=== PATIENT | male | born 1965 | race Caucasian/White ===

== ENCOUNTER 2017-10-03 15:03 | Observation (INO) | payer OTHER ==
[2017-10-03] MEDS ORDERED: Aspirin Low Dose CHEW TAB* 81 MG PO ONE (16:10)
--- NOTE | 2017-10-03 16:46 | RAD ---
HISTORY: Chest pain COMPARISONS: August 05, 2011 VIEWS: 1: frontal portable view of the chest at 4:22 PM FINDINGS: LINES AND TUBES: None. CARDIOMEDIASTINAL SILHOUETTE: The cardiomediastinal silhouette is normal for portable technique. PLEURA: The costophrenic angles are sharp. No pleural abnormalities are noted. LUNG PARENCHYMA: The lungs are clear. ABDOMEN: The upper abdomen is clear. There is no subphrenic gas. BONES AND SOFT TISSUES: The patient is status post anterior cervical fusion. Degenerative changes are noted. IMPRESSION: NO ACTIVE CARDIOPULMONARY DISEASE.
--- NOTE | 2017-10-03 17:01 | RAD ---
HISTORY: Thoracic spine pain COMPARISONS: Chest CT dated March 04, 2015 VIEWS: 4, Frontal and lateral views of the thoracic spine. FINDINGS: ALIGNMENT: There is mild choledochojejunal spine VERTEBRAL BODIES: The patient is status post laminectomy and fusion at the cervicothoracic junction. There is multilevel anterolateral marginal osteophyte formation. JOINTS: Unremarkable. INTERVERTEBRAL DISCS: There is diffuse loss of intervertebral disc height. SOFT TISSUE: Unremarkable OTHER: The visualized lungs are clear. IMPRESSION: POST SURGICAL CHANGE. DEGENERATIVE DISC DISEASE.
[2017-10-03 17:20] LABS: Hematocrit 41 % (42-52); Hemoglobin 14.2 g/dl (14.0-18.0); Mean Corpuscular HGB Conc 35 g/dl (31-36); Mean Corpuscular Hemoglobin 29 pg (27-31); Mean Corpuscular Volume 84 fL (80-94); Mean Platelet Volume 7 um3 (7.4-10.4); Red Blood Count 4.89 10^6/ul (4.0-5.4); Red Cell Distribution Width 14 % (10.5-15); White Blood Count 6.5 10^3/ul (3.5-10.8)
[2017-10-03 17:35] LABS: Albumin 4.4 g/dL (3.2-5.2); Calcium 9.3 mg/dL (8.6-10.3); EGFR African American 124.2 (>60); EGFR Non-African American 96.5 (>60); Total Bilirubin 0.8 mg/dL (0.2-1.0); Total Protein 7.4 g/dL (6.4-8.9)
[2017-10-03 17:36] LABS: Troponin I 0.01 ng/mL (<0.04)
[2017-10-03] MEDS ORDERED: Nicotine Inhaler* 10 MG AMP INH ONE (19:35)
[2017-10-03] MEDS ORDERED: Mouth Piece, Nicotine* 1 EACH CARTRIDGE ONE ×2 (19:48→22:52)
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
[2017-10-03] MEDS ORDERED: hydrOXYzine HCL TAB* 50 MG PO PRN (22:25)
[2017-10-03] MEDS ORDERED: Albuterol HFA INHALER* 8 gm MDI INH PRN (22:25)
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
[2017-10-03] MEDS ORDERED: Zolpidem TAB* 10 MG PO PRN (22:40)
[2017-10-03] MEDS: Nicotine Inhaler* 10 MG AMP INH PRN (23:03)
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
[2017-10-04] MEDS: Heparin VIAL(*) 5000 UNITS/ML VIAL (FIVE THOUSAND) SUBCUT SCH ×2 (06:05→14:10)
[2017-10-04] MEDS: Nicotine Inhaler* 10 MG AMP INH PRN ×3 (06:13→13:44)
[2017-10-04 06:36] LABS: Albumin 4.1 g/dL (3.2-5.2); BUN/Creatinine Ratio 13.6 (8-20); EGFR African American 116.1 (>60); EGFR Non-African American 90.2 (>60); Globulin 2.8 g/dL (2-4); HDL Cholesterol 21.1 mg/dL; Potassium 4.1 mmol/L (3.5-5.0); Total Bilirubin 0.7 mg/dL (0.2-1.0); Total Protein 6.9 g/dL (6.4-8.9)
[2017-10-04] MEDS ORDERED: Atorvastatin* 10 MG TAB PO SCH (09:00)
[2017-10-04] MEDS ORDERED: Umeclidin/Vilant 62.5 MDI 62.5/25 mcg 14 INH ELLIPTA DEVICE INH SCH (09:00)
[2017-10-04] MEDS ORDERED: amLODIPine TAB* 5 MG PO SCH (09:00)
[2017-10-04] MEDS ORDERED: Nicotine PATCH 21 MG/24 HR* PATCH TRANSDERM SCH (09:00)
[2017-10-04] MEDS ORDERED: Acetaminophen TAB* 325 MG PO PRN (10:54)
--- NOTE | 2017-10-04 11:07 | RAD ---
Edited for charges. Indication: Chest pain. Myocardial perfusion scan was performed utilizing 1 day protocol. 10.7 mCi of technetium 99m tetrofosmin was injected for the rest portion of study. Treadmill stress study was performed and 25.43 mCi of technetium 99m tetrofosmin was injected for the stress portion of the body. The maximum heart rate achieved was 90% of the maximum predicted value. There is homogeneous distribution of the radiotracer throughout the left ventricle. There is a moderate size defect involving the anterior wall extending into the septum and apex. This appears to mostly reverse on the rest images and this is consistent with a moderate area of reversible change. No ventriculomegaly is noted. Ejection fraction at stress is 55%. Evaluation of wall motion demonstrates no focal wall motion abnormality. IMPRESSION: Moderate-sized area of reversible change involving the anterior wall extending into the septum. Ejection fraction of 55%. ASSESSMENT: Intermediate risk Based on imaging criteria from ACC/AHA 2002 Guideline Update for the Management of Patients With Chronic Stable Angina Table 23. Noninvasive Risk Stratification. Reference. MTDD
[2017-10-04] MEDS ORDERED: Aspirin EC Low Dose* 81 MG TAB.EC PO SCH (14:00)
[2017-10-04] MEDS ORDERED: Metoprolol Succinate XL TAB* 25 MG PO SCH (14:00)
[2017-10-04] MEDS ORDERED: Atorvastatin* 40 MG TAB PO SCH (17:00)
[2017-10-04 17:15] VITALS: BP 123/66
[2017-10-04] MEDS ORDERED: Nicotine Patch Removal NOTE PATCH OFF SCH (21:00)
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
== END 2017-10-04 16:35 | disposition home or self-care (01) ==
LOC: ED 15:03 → MEDTELE 20:38
PROVIDERS: ADMIT Internal Medicine; ATTEND Internal Medicine
DX: R07.89 Other chest pain (principal); I25.119 Atherosclerotic heart disease of native coronary artery with unspecified angina pectoris; Z72.0 Tobacco use; I10 Essential (primary) hypertension; K21.9 Gastro-esophageal reflux disease without esophagitis; E78.5 Hyperlipidemia, unspecified; F41.9 Anxiety disorder, unspecified; J44.9 Chronic obstructive pulmonary disease, unspecified; Z79.899 Other long term (current) drug therapy; E78.1 Pure hyperglyceridemia; R79.89 Other specified abnormal findings of blood chemistry; M54.6 Pain in thoracic spine
CPT/HCPCS: 36415; 71010; 72070; 78452; 80053; 80061; 82550; 83605; 83735; 83880; 84484; 85025; 85379; 85610; 87641; 93005; 93017; 96375; A9270-GY; A9502; G0378; J1644

== ENCOUNTER → 2017-12-06 08:23 | Day surgery (SDC) | payer OTHER ==
[~2017-12-06 08:23] MED LIST: Acetaminophen TAB* 325 MG ONE; Acetaminophen TAB* 325 MG PO ONE; Aspirin Low Dose CHEW TAB* 81 MG ONE; Diazepam TAB(*) 5 MG ONE; Heparin 2 UNITS/ML IVPREMIX* 2,000 ML IV ONE; Heparin(*) 1000 UNIT/ML 10 ML VIAL CATH LAB IV ONE; Iohexol 350 (CONTRAST) 200 ML MDV IV ONE; Lidocaine 1% INJ* 10 MG/ML 30 ML SDV ONE; Midazolam* 1 MG/ML 10 ML VIAL (10 MG) ONE; VERAPAMIL 2.5 MG/ML 2 ML VIAL ** 5 mg/2 ml ONE; diPHENhydraMINE PO* 25 MG ONE; fentaNYL* 50 MCG/ML 2 ML VIAL (100 MCG VIAL) IV ONE; fentaNYL* 50 MCG/ML 2 ML VIAL (100 MCG VIAL) ONE; nitroGLYCERIN DRIP* 25,000 MCG/250 ML BTL ONE
[2017-12-06] MEDS: NS 0.9% 1000 ML* 1,000 ML IV SCH ×2 (11:15→15:15)
[2017-12-06 15:06] VITALS: BP 121/88
--- NOTE | 2017-12-08 04:21 | CATH ---
CC: Dr. Shayna Blood; Dr. Valentín Buckner, [facility]; Dr. Rob Dykes, Department of Cardiovascular Surgery, [facility] * CARDIAC CATHETERIZATION REPORT: DATE OF PROCEDURE: 12/06/17 - [facility] CATH INDICATION FOR PROCEDURE: The patient with markedly abnormal exercise nuclear stress test on 2-drug therapy for angina pectoris, assess coronary anatomy. PROCEDURE: Left heart catheterization, left ventriculography, coronary arteriography. DESCRIPTION OF PROCEDURE: The patient was interviewed and examined in the holding area of the lab tech where the risks and benefits were explained. The right radial artery was assessed for size and found to be acceptable for an approach. The patient was brought into the cardiovascular laboratory where a formal time-out was performed. He was prepped and draped in a sterile fashion. The right radial artery area was anesthetized with 1% lidocaine. Under ultrasound guidance, an attempt was made to cannulate the right radial artery. Of note, in analyzing right radial artery a short distance up from the initial site, the right radial artery appeared to be very small in caliber and diffusely diseased with plaque formation. After 2 attempts, the decision was made to abort this approach and to proceed to the right femoral artery approach. The patient had already been prepped and draped in a sterile fashion to this area. He was anesthetized with 1% lidocaine and the right femoral artery was entered with an anterior wall stick only. A 5-Yi Glidesheath was placed. Coronary arteriography was then performed using a 5-Yi 4 Ananda left coronary catheter and 5-Yi 4 Ananda right coronary catheter. Following this, central aortic pressure was recorded using an angled pigtail catheter advanced into the ascending aorta. Once recorded, the catheter was passed across the aortic valve into the left ventricle, where left ventricular pressure was recorded. Left ventriculography was performed utilizing a total of 24 cc of Omnipaque dye at a rate of 12 cc per second The catheter was then pulled back across the aortic valve to recheck gradient. Following this, an injection was made into the right femoral artery sheath to assess eligibility to utilize closure device. It was found be acceptable for this and as such a 5- Yi Mynx closure device was deployed with good hemostasis. The total contrast used was 74 cc of Omnipaque dye. The radiation exposure included 5.3 minutes of fluoro time. The air kerma radiation was 572 milligray. The DAP radiation was 3313 microgray per sq. m. RESULTS: HEMODYNAMIC DATA: Left heart catheterization - central aortic pressure recorded at 138/76 with a mean of 102. Left ventricular pressure recorded at 139 over left ventricular end diastolic pressure of 14 to 16 mmHg. LEFT VENTRICULOGRAPHY: Performed in the DOUGLAS projection revealed symmetrical contraction of left ventricle with overall ejection fraction 50% to 55%. No significant mitral regurgitation was identified. CORONARY ARTERIOGRAPHY: A. Left coronary artery: 1. Left main - there was tapering of the distal left main because of a heavy calcified plaque, which extended from the distal left main into the LAD system. In its worst view, the distal left main appeared to be 55% to 60%. 2. Left anterior descending artery. Extensive calcified plaque extending into the proximal segment with diffuse disease with an 85% stenosis seen. Of note, the diffuse nature of the vessel extended back to the ostium of the LAD and into the distal left main. The mid portion of the LAD had a 35% to 40% narrowing seen. The artery appeared to be more normal caliber in its mid segment to [id number] segment. The diagonal branches appeared to be small in caliber in nature. They clearly appeared to be under 1.7 mm. 3. Circumflex artery - a nondominant vessel supplying a very thin high first high obtuse marginal branch followed by a moderate size large second obtuse marginal branch, which bifurcates in its apical region. The continuation of circumflex supplied several low small caliber posterior left ventricular branches. There was mild haze seen in the proximal portion of the circumflex artery, but no significant stenosis was seen. B. Right coronary artery: A dominant vessel supplying multiple acute marginal branches followed by a posterior descending artery, too thin, followed by a moderate size posterior left ventricular branch. There was some mild luminal irregularity seen throughout the vessel. The degree of narrowing noted to be 25% to 30% at its most, but no significant stenosis was seen. OVERALL ASSESSMENT: Significant coronary artery disease involving distal left main and proximal left anterior descending artery as described above with mild-to- moderate disease in the mid portion of the left anterior descending artery. No significant disease seen throughout the circumflex system or the right coronary artery. This information was shared with Dr. Valentín Buckner and also with Dr. Rob Dykes at [facility]. The patient will be scheduled for an outpatient visit in less than a week's time with Dr. Rob Dykes followed by anticipated bypass surgery. It should be noted that prior to performing the catheterization, an extensive discussion was made with the patient regarding dual antiplatelet therapy and the ability to take it should any stenting be compensated prior to these results. That discussion was had by Dr. Buckner as well as myself and on both indications, the patient made it clear that he did not feel he could participate in spiritism dual-antiplatelet therapy as he stated in general he was very forgetful taking his medications and often would go days without it. [id number]/[facility] #: [id number] MTDD
== END | disposition home or self-care (01) ==
LOC: CHICATH 08:23
PROVIDERS: ATTEND Internal Medicine Cardiovascular Disease
DX: I25.119 Atherosclerotic heart disease of native coronary artery with unspecified angina pectoris (principal); F17.210 Nicotine dependence, cigarettes, uncomplicated; R42 Dizziness and giddiness; I10 Essential (primary) hypertension; E78.5 Hyperlipidemia, unspecified
CPT/HCPCS: 76937; 93458; 99156; 99157; A9270-GY; C1887; J1644; J2250; J3010

== ENCOUNTER 2017-12-27 16:38 | Inpatient (IN) | payer OTHER ==
--- OUTSIDE RECORDS SUMMARY | 2017-12-27 17:21 | XMS REPORT ---
:1965 External Reference #:[id number] Author Organization [facility] Address [address] [address] Phone [phone] Care Team Providers Name Role Phone Shayna Blood MD Primary Care Physician Unavailable Payers Type Date Identification Numbers Payment Provider Subscriber Commercial Policy Number: [id number] [employer] Gilmar Beard PayID: [id number] [address] [address] [place] [address] Workers Compensation Onset: 1988 Policy Number: State Insurance Gilmar Beard [id number] Fund Group Number: [id number] [address] [address] PayID: [place] [address] Problems Date Description Provider Status Onset: 09/05/2011 Closed fracture of six ribs Matt Ashford M.D. Active Onset: 09/05/2011 Cervical disc disorder Matt Ashford M.D. Active Onset: 09/05/2011 Family history of polyp of colon Matt Ashford M.D. Active Onset: 09/05/2011 Tobacco user Matt Ashford M.D. Active Onset: 09/05/2011 Chronic pain syndrome Matt Ashford M.D. Active Onset: 09/12/2011 Disorder of lumbar disc Matt Ashford M.D. Active Onset: 09/25/2011 Hyperlipidemia Matt Ashford M.D. Active Onset: 09/25/2011 Adhesive capsulitis of shoulder Matt Ashford M.D. Active Onset: 01/16/2012 Shoulder joint pain Matt Ashford M.D. Active Onset: 01/16/2012 Polyneuropathy Matt Ashford M.D. Active Onset: 02/06/2012 Elevated blood-pressure reading Matt Ashford M.D. Active without diagnosis of hypertension Onset: 07/30/2012 Cauda equina syndrome without Matt Ashford M.D. Active neurogenic bladder Onset: 09/23/2012 Acute bronchitis Matt Ashford M.D. Active Onset: 01/18/2014 Lumbar post-laminectomy syndrome John Choe M.D. 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 Active Onset: 11/01/2015 Lumbar spondylosis John Choe M.D. 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 Cigarette Use Current Cigarette Smoker 1 Pack Daily ETOH Use Denies alcohol use Recreational Drug Use Sporadically uses Marijuana Smoking Patient is a current smoker, smokes every day Smoking Heavy tobacco smoker (more than 10 cigarettes/day) Daily Caffeine Consumes on average 3 cups of regular coffee per day Exercise Type/Frequency Does not exercise Allergies, Adverse Reactions, Alerts Date Description Reaction Status Severity Comments 09/05/2011 NKDA active Medications Medication Date Status Form Strength Qnty SIG Indications Ordering Provider Amlodipine 10/16 Active Tablets 10mg 90tab 1 by mouth Valentín S. Besylate /2016 s every day ( Buckner, DO taken in [facility] Am) Metoprolol 10/16 Active Tablets ER 50mg 90tab 1 by mouth Valentín S. Succinate ER /2016 24HR s every day ( Buckner, DO Taken in [facility] Am) Atorvastatin 10/16 Active Tablets 80mg 90tab 1 by mouth Valentín S. Calcium /2016 s every day ( Buckner, DO taken in [facility] Am) Omeprazole 09/26 Active 20mg 1 po daily Stevanovic /2016 Am , MD Shayna Ventolin HFA 08/25 Active Aerosol 108(90Bas 3unit 2 puffs po 466.0 Bekah /2013 e) s qid prn Lazaro, mcg/Act Kateryna Lyrica Active Capsules 150mg 60cap 1 by mouth Unknown /0000 s three times a day (not on discharge summary) ( Last taken 05/2017) Tylenol Active 500mg 2 tablet po Unknown / every 8 hours as needed Nicotine Step 2 Active Patches 21mg/24HR apply one Unknown / 24HR patch to body daily Anoro Ellipta Active Aerosol 62.5-25mc 1 Unknown /0000 g/Inh inhalation daily (pt uses 3 times a week) Albuterol Active Nebulizer 1.25mg/3M use four Unknown Sulfate 0000 L times a day as needed with nebulizer as needed Vitamin B Active 1tsp by Unknown Complex /0000 mouth every day (sporadic) ( Last taken 3 days ago 12/02/17 mid day) Vitamin D Active Capsules 50342Pbjy take one Unknown (Ergocalciferol /0000 capsule by ) mouth once weekly ( taken every other week) Clonidine HCL Active Tablets 0.1mg 1 tablet po Gibson, /0000 daily ( Jose, Last taken N.P. 12/03/17 12:00pm taking only as needed) Hydroxyzine HCL Active Tablets 50mg 1 po at Stevanovic /0000 bedtime ( , Radomir, taking 2-3 MD tablet po at bedtime alternate with Quetiapine Fumarate day) Benadryl Active Capsules 25mg 1-2 cap po Unknown Allergy /0000 at bedtime as needed ( alternate night of sleeping tablets) Nitroglycerin Active Tablets Sub 0.4mg 1 sl q5mins Unknown /0000 x3 as needed for chest pain Nicotine Active Powder 10mg Unknown Tartrate /0000 inhaled q2h prn. Cravings Aspirin Active Tablets DR 81mg 1 by mouth Unknown /0000 every day ( taken in Am) Vitamin D3 Active Capsules 2000Unit 1 by mouth Unknown /0000 every day ( taken in Am) Fluticasone Active Suspension 50mcg/Act 1 sprays Unknown Propionate /0000 each nostril twice daily ( taken as needed ) Quetiapine Active Tablets 25mg 1 tab by Stevanovic Fumarate /0000 mouth every , Radomir, night at MD bedtime( taken 3 tablet before bedtime using at least 2 times per week ) Naproxen 07/15 Hx Tablets 500mg 40tab 1 tablet by Anna /2014 s mouth with Bordoni, - food twice BOILER FITTER 10/30 daily. Sulfamethoxazol 08/25 Hx Tablets 800-160mg 20tab 1 tab po 2x 466.0 Bekah e/Trimethoprim s per day DWAIN Willis M.D. 01/18 Flonase 08/25 Hx Suspension 50mcg/Act 1unit 1 466.0 Nany Rico pudana to Kateryna 01/18 nostril daily Mucinex 08/25 Hx Tablets ER 600mg 30tab 1 po bid 466.0 12HR s Nany Willis M.D. 01/18 Medrol Dosepak 08/25 Hx Tablets 4mg 1tabs per 466.0 directions Nany Willis M.D. 01/18 Hydrocodone/Christopher 11/17 Hx Tablets 7.5-500mg 30tab q 8h prn 722.93 Matt bills s (30days Makeda, - supply) Kateryna 08/25 Hydrocodone/Christopher 09/30 Hx Tablets 7.5-500mg 90tab q 8h prn 722.93 Matt bills Nany La M.D. 10/27 Amoxicillin/Cla 09/23 Hx Tablets 875-125mg 20tab 1 po bid 466.0 Matt vulanate Stephanie La M.D. 10/27 Colace 07/30 Hx Capsules 100mg 60cap 2 tab hs 564.00 Matt Nany La M.D. 09/23 Ibuprofen 11/07 Hx Tablets 600mg 90tab tid 722.93 Matt Nany La M.D. 12/24 Hydrocodone 09/05 Hx Tablets 7.5-300mg 120ta 1 tab ever 338.4 [place] Bitartrate/ bs 6hrs prn darrel Ashford - Kateryna 09/05 Hydrocodone 09/05 Hx Tablets 7.5-325mg 120ta 1 tab ever 338.4 [place] Bitartrate/ bs 6hrs prn darrel Ashford M.D. 01/15 Flexeril 01/09 Hx Tablets 10mg 40tab 1 po tid John Chavez /2010 s prn Nany Choe M.D. 04/10 Carisoprodol 01/09 Hx Tablets 350mg 45tab one po tid John Chavez /2010 s prn Nany Luu M.D. 01/01 Tylenol Hx Tablets 500mg prn Unknown /0000 - 01/15 Ibuprofen Hx Capsules 200mg prn Unknown /0000 - 11/[address] 500-20mg 60tab 1 po qd prn Unknown /0000 s - 01/18 Oxycodone HCL Hx Capsules 20mg 40cap 2 po q6hrs Unknown /0000 s - 09/23 Tylenol 8 Hour Hx Tablets ER 650mg 30tab 1 po q Unknown /0000 s 6hrs.prn - for 11/17 of pain Oxycodone-Aceta Hx Tablets 7.5-325mg 120ta 1 by mouth Unknown minophen /0000 bs four times a day as needed Oxycontin Hx Tab ER 12H 40mg 60tab 1 tablet by Unknown /0000 Abuse-Det s mouth every - 8 hours 09/20 (not discharge summary) Celebrex Hx Capsules Unknown 1 by mouth Unknown /0000 every day - 10/[address] 60mg 1 by mouth Unknown /0000 Part every day - (not on 10/15 discharge /2016 summary) Simvastatin Hx Tablets 10mg take 1 Unknown /0000 tablet by - mouth at 09/20 bedtime /2016 (not on discharge summary) Amlodipine Hx Tablets 5mg 1 daily Gibson Besylate /0000 Jose, - N.P. 10/16 Seroquel 00/00 Hx Tablets 25mg daily as Unknown /0000 needed for - sleep 12/04 Metoprolol 0000 Hx Tablets ER 25mg 1 by mouth Unknown Succinate ER /0000 24HR every day - 10/16 Atorvastatin 00/00 Hx Tablets 40mg 1 by mouth Unknown Calcium /0000 every day - 10/16 Medications Administered in Office Medication Date Status Form Strength Qnty SIG Indications Ordering Provider Technetium TC Administered Injection Valentín S. 99M 018 DO Dudley Tetrofosmin, FACC Per Unit Dose Up To 40 Millicuries Celestone 3 mg Administered Injection Key and 3mg 016 Kateryna Chadwick Immunizations CPT Code Status Date Vaccine Lot # [id number] Given 09/12/2011 Influenza Virus 3Yrs & Over 31896 Given 09/12/2011 Influenza Virus 3Yrs & Over Vital Signs Date Vital Result Comment 12/05/2017 Height 73 inches 6'1" Weight 217.00 lb without shoes Heart Rate 60 /min BP Systolic Sitting 128 mmHg Lue lg cuff BP Diastolic Sitting 80 mmHg Lue lg cuff BP Systolic Standing 120 mmHg Lue lg cuff BP Diastolic Standing 80 mmHg Lue lg cuff Respiratory Rate 16 /min BMI (Body Mass Index) 28.6 kg/m2 10/16/2017 Height 61.25 inches 5'1.25" Weight 210.00 lb without shoes Heart Rate 76 /min BP Systolic 120 mmHg Rue reg cuff BP Diastolic 90 mmHg Rue reg cuff BP Systolic Sitting 120 mmHg Lue Reg Cuff BP Diastolic Sitting 94 mmHg Lue Reg Cuff BP Systolic Standing 138 mmHg Lue reg cuff BP Diastolic Standing 98 mmHg Lue reg cuff Respiratory Rate 17 /min BMI (Body Mass Index) 39.4 kg/m2 03/06/2017 Heart Rate 78 /min BP Systolic 118 mmHg BP Diastolic 82 mmHg Respiratory Rate 18 /min Body Temperature 96.9 F 02/15/2017 Height 73 inches 6'1" Weight 203.00 lb Heart Rate 74 /min BP Systolic 118 mmHg BP Diastolic 80 mmHg Respiratory Rate 16 /min BMI (Body Mass Index) 26.8 kg/m2 01/19/2016 Height 73 inches 6'1" Weight 190.00 lb Heart Rate 70 /min BP Systolic Sitting 1120 mmHg BP Diastolic Sitting 60 mmHg Pain Level 5 BMI (Body Mass Index) 25.1 kg/m2 11/01/2015 Height 73 inches 6'1" Weight 190.00 lb Heart Rate 78 /min BP Systolic Sitting 136 mmHg BP Diastolic Sitting 82 mmHg Pain Level 5 BMI (Body Mass Index) 25.1 kg/m2 10/31/2015 Height 73 inches 6'1" Weight 190.00 lb Pain Level 8 BMI (Body Mass Index) 25.1 kg/m2 08/24/2015 Height 73 inches 6'1" Weight 190.00 lb Pain Level 8 BMI (Body Mass Index) 25.1 kg/m2 07/15/2015 Height 73 inches 6'1" Weight 190.00 lb Pain Level 8 BMI (Body Mass Index) 25.1 kg/m2 07/08/2015 Height 73 inches 6'1" Weight 191.00 lb Heart Rate 78 /min BP Systolic Sitting 126 mmHg BP Diastolic Sitting 80 mmHg Pain Level 8 L elbow BMI (Body Mass Index) 25.2 kg/m2 01/11/2015 Height 73 inches 6'1" Weight 195.00 lb Heart Rate 86 /min BP Systolic Sitting 140 mmHg BP Diastolic Sitting 90 mmHg Pain Level 7 back BMI (Body Mass Index) 25.7 kg/m2 10/12/2014 Height 73 inches 6'1" Weight 191.00 lb Heart Rate 68 /min BP Systolic Sitting 140 mmHg BP Diastolic Sitting 80 mmHg Pain Level 4 neck BMI (Body Mass Index) 25.2 kg/m2 07/20/2014 Height 73 inches 6'1" Weight 180.00 lb Heart Rate 84 /min BP Systolic Standing 138 mmHg BP Diastolic Standing 96 mmHg Pain Level 10 back BMI (Body Mass Index) 23.7 kg/m2 01/18/2014 Height 73 inches 6'1" Weight 183.00 lb BP Systolic 142 mmHg BP Diastolic 98 mmHg Pain Level 5 low back BMI (Body Mass Index) 24.1 kg/m2 08/25/2013 Weight 182.00 lb Heart Rate 77 /min BP Systolic Sitting 157 mmHg BP Diastolic Sitting 101 mmHg Body Temperature 97.5 F 11/17/2012 Height 71.50 inches 5'11.50" Weight 186.75 lb Heart Rate 80 /min BP Systolic Sitting 160 mmHg BP Diastolic Sitting 98 mmHg O2 % BldC Oximetry 98 % BMI (Body Mass Index) 25.7 kg/m2 10/27/2012 Height 71.50 inches 5'11.50" Weight 182.00 lb Heart Rate 80 /min BP Systolic Sitting 120 mmHg BP Diastolic Sitting 82 mmHg BMI (Body Mass Index) 25.0 kg/m2 09/30/2012 Height 71.50 inches 5'11.50" Weight 182.00 lb Heart Rate 78 /min BP Systolic Sitting 128 mmHg BP Diastolic Sitting 84 mmHg BMI (Body Mass Index) 25.0 kg/m2 09/23/2012 Height 71.50 inches 5'11.50" Weight 177.00 lb Heart Rate 85 /min BP Systolic Sitting 120 mmHg BP Diastolic Sitting 82 mmHg Body Temperature 99.1 F O2 % BldC Oximetry 99 % BMI (Body Mass Index) 24.3 kg/m2 07/30/2012 Height 71.50 inches 5'11.50" Weight 178.00 lb Heart Rate 80 /min BP Systolic Sitting 130 mmHg BP Diastolic Sitting 80 mmHg BMI (Body Mass Index) 24.5 kg/m2 02/25/2012 Height 71.50 inches 5'11.50" Weight 178.00 lb Heart Rate 64 /min BP Systolic Sitting 122 mmHg BP Diastolic Sitting 86 mmHg BMI (Body Mass Index) 24.5 kg/m2 02/06/2012 Height 71.50 inches 5'11.50" Weight 175.00 lb Heart Rate 68 /min BP Systolic Sitting 152 mmHg BP Diastolic Sitting 72 mmHg BMI (Body Mass Index) 24.1 kg/m2 01/16/2012 Height 71.50 inches 5'11.50" Weight 176.00 lb Heart Rate 68 /min BP Systolic Sitting 132 mmHg l BP Diastolic Sitting 72 mmHg l BMI (Body Mass Index) 24.2 kg/m2 01/02/2012 Height 71.50 inches 5'11.50" Weight 182.00 lb Heart Rate 72 /min BP Systolic Sitting 130 mmHg BP Diastolic Sitting 78 mmHg BMI (Body Mass Index) 25.0 kg/m2 12/25/2011 Height 71.50 inches 5'11.50" Weight 180.00 lb Heart Rate 64 /min BP Systolic Sitting 132 mmHg l BP Diastolic Sitting 78 mmHg l BMI (Body Mass Index) 24.8 kg/m2 11/07/2011 Height 71.50 inches 5'11.50" Weight 180.75 lb Heart Rate 64 /min BP Systolic Sitting 151 mmHg BP Diastolic Sitting 82 mmHg BMI (Body Mass Index) 24.9 kg/m2 09/25/2011 Height 71.50 inches 5'11.50" Weight 172.00 lb Heart Rate 76 /min BP Systolic Sitting 125 mmHg BP Diastolic Sitting 70 mmHg BMI (Body Mass Index) 23.7 kg/m2 09/12/2011 Height 71.50 inches 5'11.50" Weight 179.00 lb Heart Rate 76 /min BP Systolic Sitting 125 mmHg BP Diastolic Sitting 90 mmHg BMI (Body Mass Index) 24.6 kg/m2 09/05/2011 Height 71.50 inches 5'11.50" Weight 175.00 lb Heart Rate 76 /min BP Systolic Sitting 160 mmHg BP Diastolic Sitting 120 mmHg BMI (Body Mass Index) 24.1 kg/m2 Results Test Date Test Result H/L Range Note Cath Panel 12/05/2017 Partial Thrombo Time PTT <pending> Drug Abuse 20 09/30/2012 Urine Amphetamine Negative ng/mL 1 Urine Urine Barbiturates Negative ng/mL 2 Urine Benzodiazepines Negative ng/mL 3 Urine Cocaine Negative ng/mL 4 Urine Methadone Negative ng/mL 5 Urine Opiates Negative ng/mL 6 Urine Phencyclidine Negative ng/mL Cutoff: 25 Urine Propoxyphene Negative ng/mL 7 Urine Tetrahydrocannabinol Presumptive Posi <SEE NOTE> ng/mL Cutoff: 20 8 Creatinine 70.8 mg/dL Specific Duncan 1.011 pH 7.1 Oxidants Negative 9 Urine Opiates Screen Negative 10 Urine Codeine Confirmation Negative ng/mL 11 Urine Hydrocodone Confirm Negative ng/mL 12 Urine Hydromorphone Confirm Negative ng/mL 13 Urine Morphine Confirm Negative ng/mL 14 Urine Oxycodone Confirm Negative ng/mL 15 Urine Opiates Interpretation Negative. 16 THC Confirmation Urine 09/30/2012 Urine THC Screen Presumptive Posi Cutoff: 20 17 <SEE NOTE> Urine Carboxy THC Confirm 158 ng/mL Cutoff: 3 Urine THC Interpretation Positive. 18 Basic Metabolic Panel 09/09/2012 Sodium 137 mmol/L 133-145 Potassium 5.0 mmol/L 3.5-5.0 Chloride 101 mmol/L 101-111 Co2 Carbon Dioxide 30.0 mmol/L 22-32 Anion Gap 6.0 mmol/L 2-11 Glucose 85 mg/dL 70-100 Blood Urea Nitrogen 17 mg/dL 6-24 Creatinine 0.70 mg/dL 0.50-1.40 BUN/Creatinine Ratio 24.3 High 8-20 Calcium 9.8 mg/dL 8.1-9.9 Egfr Non- 119.9 >60 Egfr 154.2 >60 19 Basic Metabolic Panel 08/12/2012 Sodium 138 mmol/L 133-145 Potassium 5.2 mmol/L High 3.5-5.0 Chloride 103 mmol/L 101-111 Co2 Carbon Dioxide 28.0 mmol/L 22-32 Anion Gap 7.0 mmol/L 2-11 Glucose 94 mg/dL 70-100 Blood Urea Nitrogen 9 mg/dL 6-24 Creatinine 0.70 mg/dL 0.50-1.40 BUN/Creatinine Ratio 12.9 8-20 Calcium 9.8 mg/dL 8.1-9.9 Egfr Non- 119.9 >60 Egfr 154.2 >60 20 Comp Metabolic Panel 07/30/2012 Sodium 138 mmol/L 133-145 Potassium 5.9 mmol/L High 3.5-5.0 21 Chloride 108 mmol/L 101-111 Co2 Carbon Dioxide 28.0 mmol/L 22-32 Anion Gap 2.0 mmol/L 2-11 Glucose 95 mg/dL 70-100 Blood Urea Nitrogen 15 mg/dL 6-24 Creatinine 0.80 mg/dL 0.50-1.40 BUN/Creatinine Ratio 18.8 8-20 Calcium 9.7 mg/dL 8.1-9.9 Total Protein 6.7 GM/DL 6.2-8.1 Albumin 4.4 GM/DL 3.6-5.4 Globulin 2.3 GM/DL 2-4 Albumin/Globulin Ratio 1.9 1-3 Total Bilirubin 0.6 mg/dL 0.1-1.0 22 Alkaline Phosphatase 62 U/L 30-110 Alt 24 U/L 14-54 Ast 28 U/L 12-42 Egfr Non- 102.7 >60 Egfr 132.1 >60 23 Surgical Pathology 11/09/2011 Surgical <SEE 24 Pathology NOTE> THC 11/07/2011 Urine THC Screen Presumptive Posi <SEE Cutoff: 20 25 Confirmation,Urine NOTE> THC Carboxylic Acid By GC/MS 78 ng/mL Cutoff: 3 Urine THC Interpretation Positive. () 26 Opiates, Urine 11/07/2011 Urine Opiates Screen Presumptive Posi <SEE ( ) 27 NOTE> Urine Codeine By GC/MS Negative ng/mL () 28 Urine Hydrocodone By GC/MS 2880 ng/mL () 29 Urine Hydromophone By GC/MS 111 ng/mL () 30 Urine Morphine By GC/MS Negative ng/mL () 31 Urine Oxycodone By GC/MS Negative ng/mL () 32 Urine Opiates Interpretation Positive. () 33 Drug Abuse 20 Urine 11/07/2011 Urine Ampetamines Negative ng/mL () 34 Urine Barbiturates Negative ng/mL () 35 Urine Benzodiazepines Negative ng/mL () 36 Urine Cocaine Negative ng/mL () 37 Urine Methadone Negative ng/mL () 38 Urine Opiates Presumptive Posi <SEE NOTE> ng/mL () 39 Urine Phencyclidine Negative ng/mL Cutoff: 25 Urine Propoxyphene Negative ng/mL () 40 Urine Tetrahydrocannabinol Presumptive Posi <SEE NOTE> ng/mL Cutoff: 20 41 Laboratory test finding 09/12/2011 PSA 1.10 NG/ML 0-4 42 Lipid Profile (Trig/Chol/HDL) 09/12/2011 Triglyceride 118 mg/dL 40-200 Cholesterol 220 mg/dL High Less Than 200 43 High Density Lipoprotein 41 mg/dL 40-60 44 Low Density Lipoprotein 155 mg/dL High Less Than 100 45 Cholesterol/HDL Ratio 5.37 AVERAGE High 1-4.97 Comp Metabolic Panel 09/12/2011 Sodium 145 mmol/L 135-145 Potassium 5.4 mmol/L High 3.5-5.0 Chloride 107 mmol/L 101-111 Co2 (Carbon Dioxide) 30.0 mmol/L 22-32 Anion Gap 8.0 mmol/L 2-11 46 Glucose 101 mg/dL High 70-100 BUN 14 mg/dL 6-24 Creatinine 0.8 mg/dL 0.50-1.40 One Over Creatinine 1.25 BUN/Creatinine Ratio 17.5 8-20 Calcium 10.0 mg/dL High 8.1-9.9 Total Protein 6.8 GM/DL 6.2-8.1 Albumin 4.4 GM/DL 3.6-5.4 Globulin 2.4 GM/DL 2-4 Albumin/Globulin Ratio 1.8 1-3 Bilirubin Total 0.9 mg/dL 0.4-1.5 47 Alkaline Phosphatase 51 U/L 39-117 Alt (SGPT) 47 U/L 17-63 Ast (Sgot) 30 U/L 12-42 eGFR Non- 103.2 > 60 eGFR 132.7 > 60 48 Drug Abuse 20 Urine 09/05/2011 Urine Ampetamines Negative ng/mL () 49 Urine Barbiturates Negative ng/mL () 50 Urine Benzodiazepines Negative ng/mL () 51 Urine Cocaine Negative ng/mL () 52 Urine Methadone Negative ng/mL () 53 Urine Opiates Negative ng/mL () 54 Urine Phencyclidine Negative ng/mL Cutoff: 25 Urine Propoxyphene Negative ng/mL () 55 Urine Tetrahydrocannabinol Reflex* ng/mL Cutoff: 20 56 THC Confirmation,Urine 09/05/2011 Urine THC Screen Positive Cutoff: 20 THC Carboxylic Acid By GC/MS 83 ng/mL Cutoff: 3 Urine THC Interpretation Positive () 57 1 -- REFERENCE VALUE -- Cutoff: 500 2 -- REFERENCE VALUE -- Cutoff: 200 3 -- REFERENCE VALUE -- Cutoff: 200 4 -- REFERENCE VALUE -- Cutoff: 150 5 -- REFERENCE VALUE -- Cutoff: 300 6 -- REFERENCE VALUE -- Cutoff: 300 7 -- REFERENCE VALUE -- Cutoff: 300 8 Presumptive Positive Drug confirmation to follow. Presumptive Positive means that the screening method is positive, but the test needs to be run by a confirmatory method before being finalized. This report is intended for use in clinical monitoring or management of patients. It is not intended for use in employment-related testing. 9 Test Performed by: [place] [address] Chemical Unit Operator: Akil Medina III, M.D. 10 -- REFERENCE VALUE -- Cutoff: 300 11 -- REFERENCE VALUE -- Cutoff: 100 12 -- REFERENCE VALUE -- Cutoff: 100 13 -- REFERENCE VALUE -- Cutoff: 100 14 -- REFERENCE VALUE -- Cutoff: 100 15 -- REFERENCE VALUE -- Cutoff: 100 16 This report is intended for use in clinical monitoring and management of patients. It is not intended for use in employment-related testing. Test Performed by: [address] [address] Chemical Unit Operator: Akil Medina III, M.D. 17 Presumptive Positive 18 This report is intended for use in clinical monitoring and management of patients. It is not intended for use in employment-related testing. Test Performed by: [address] [address] Chemical Unit Operator: Akil Medina III, M.D. 19 Because ethnic data is not always readily available, this report includes an eGFR for both -Americans and non- Americans. The National Kidney Disease Education Program (NKDEP) does not endorse the use of the MDRD equation for patients that are not between the ages of 18 and 70, are , have extremes of body size, muscle mass, or nutritional status, or are non- or non-. According to the National Kidney Foundation, irrespective of diagnosis, the stage of the disease is based on the level of kidney function: Stage Description GFR(mL/min/1.73 m(2)) 1 Kidney damage with normal or decreased GFR 90 2 Kidney damage with mild decrease in GFR 60-89 3 Moderate decrease in GFR 30-59 4 Severe decrease in GFR 15-29 5 Kidney failure <15 (or dialysis) 20 Because ethnic data is not always readily available, this report includes an eGFR for both -Americans and non- Americans. The National Kidney Disease Education Program (NKDEP) does not endorse the use of the MDRD equation for patients that are not between the ages of 18 and 70, are , have extremes of body size, muscle mass, or nutritional status, or are non- or non-. According to the National Kidney Foundation, irrespective of diagnosis, the stage of the disease is based on the level of kidney function: Stage Description GFR(mL/min/1.73 m(2)) 1 Kidney damage with normal or decreased GFR 90 2 Kidney damage with mild decrease in GFR 60-89 3 Moderate decrease in GFR 30-59 4 Severe decrease in GFR 15-29 5 Kidney failure <15 (or dialysis) 21 No hemolysis present 22 A metabolite of Naproxen, O-desmethylnaproxen, has been shown to interfere with the Jendrassik-Earl method for measuring total bilirubin. Samples from patients who have taken Naproxen have shown spurious elevation in total bilirubin levels. 23 Because ethnic data is not always readily available, this report includes an eGFR for both -Americans and non- Americans. The National Kidney Disease Education Program (NKDEP) does not endorse the use of the MDRD equation for patients that are not between the ages of 18 and 70, are , have extremes of body size, muscle mass, or nutritional status, or are non- or non-. According to the National Kidney Foundation, irrespective of diagnosis, the stage of the disease is based on the level of kidney function: Stage Description GFR(mL/min/1.73 m(2)) 1 Kidney damage with normal or decreased GFR 90 2 Kidney damage with mild decrease in GFR 60-89 3 Moderate decrease in GFR 30-59 4 Severe decrease in GFR 15-29 5 Kidney failure <15 (or dialysis) 24 ---- RUN DATE: 11/12/11 [facility] NMI LIVE PAGE 1 RUN TIME: 1435 Specimen Inquiry RUN USER: INTERFACE -- Name: GILMAR BEARD Accjose#: [id number] Status: REG REF Re11/09/11 Age/Sex: 46/M Unit#: [id number] Location: [facility]. : 61 -- Specimen: [id number] SOUT Spec Date: 11/09/[address] [facility] [address]: Colt perez MD Spec Type: SURGICAL P Received: 11/09/11-4307 Copies to: Matt richards MD SPECIMEN 1) BIOPSY ESOPHAGOGASTRIC JUNCTION 2) BIOPSY COLON POLYP AT 15 CM. 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 Submitted entirely, one cassette labelled 1. 2) The specimen is received in formalin labelled Gilmar Scott Beard, Biopsy Colon Polyp at 15 cm., and consists of one fragment of pink tissue measuring 0.4 x 0.2 x 0.2 cm. Submitted entirely, one cassette labelled 2. DIAGNOSIS 1) GE junction, biopsy: A. Gastroesophageal junction mucosa with mild reflux esophagitis and extensive goblet cell metaplasia. B. No dysplasia is noted. 2) Colon, 15 cm., biopsy: Hyperplastic polyp. Signed Electronically by: POOL CARVAJAL MD 11/12/11 1430 -- -- DEPARTMENT OF PATHOLOGY, [address] [place] [address] [facility] Permit #[id number] Pool Carvajal M.D. Director Monika Bonilla M.D. Shuffle Board Operator Dir stiven -- 25 Presumptive Positive 26 This report is intended for use in clinical monitoring and management of patients. It is not intended for use in employment-related testing. Test Performed by: [facility] Dpt of Lab Med and Pathology [address] [place] [address] Chemical Unit Operator: Akil Medina III, M.D. 27 Presumptive Positive -- REFERENCE VALUE -- Cutoff: 300 28 -- REFERENCE VALUE -- Cutoff: 100 29 -- REFERENCE VALUE -- Cutoff: 100 30 -- REFERENCE VALUE -- Cutoff: 100 31 -- REFERENCE VALUE -- Cutoff: 100 32 -- REFERENCE VALUE -- Cutoff: 100 33 This report is intended for use in clinical monitoring and management of patients. It is not intended for use in employment-related testing. Test Performed by: [facility] Dpt of Lab Med and Pathology [address] [place], [place] [id number] Chemical Unit Operator: Akil Medina III, M.D. 34 -- REFERENCE VALUE -- Cutoff: 500 35 -- REFERENCE VALUE -- Cutoff: 200 36 -- REFERENCE VALUE -- Cutoff: 200 37 -- REFERENCE VALUE -- Cutoff: 300 38 -- REFERENCE VALUE -- Cutoff: 300 39 Presumptive Positive Drug Confirmation ordered by reflex. Refer to confirmation results to follow for the definitive results. -- REFERENCE VALUE -- Cutoff: 300 40 -- REFERENCE VALUE -- Cutoff: 300 41 Presumptive Positive Drug Confirmation ordered by reflex. Refer to confirmation results to follow for the definitive results. This report is intended for use in clinical monitoring or management of patients. It is not intended for use in employment-related testing. Test Performed by: [facility] Dpt of Lab Med and Pathology [address] [place] [id number] Chemical Unit Operator: Akil Medina III, M.D. 42 * SERUM LEVELS OF PSA MEASURED USING THE APOLONIA MAICOL ACCESS HYBRITECH IMMUNOASSAY SHOULD NOT BE INTERPRETED ABSOLUTE EVIDENCE OF THE PRESENCE OR ABSENCE OF DISEASE. THE PSA VALUE SHOULD BE USED IN CONJUNCTION WITH OTHER PERTINENT CLINICAL DIAGNOSTIC PROCEDURES. 43 CHOLESTEROL INTERPRETATION: Desirable: Less than 200 MG/DL Borderline-High Risk: 200-239 MG/DL High-Risk: 240 MG/DL and over 44 HDL INTERPRETATION: Undesirable: High Risk: Less than 40 MG/DL Desirable: Low Risk: Greater than 60 MG/DL 45 LDL INTERPRETATION: Low Risk Optimal Level: LDL Less than 100 MG/DL Near or Above Optimal: LDL 100-129 MG/DL Borderline High Risk: LDL 130-159 MG/DL High Risk: LDL 160-189 MG/DL Very High Risk: LDL Greater than 189 MG/DL 46 Anion gap measurement may be of limited value in the presence of any alkalosis, especially in a combined acid base disorder. . 47 A metabolite of Naproxen, O-desmethylnaproxen, has been shown to interfere with the Jendrassik-Earl method for measuring total bilirubin. Samples from patients who have taken Naproxen have shown spurious elevation in total bilirubin levels. 48 Because ethnic data is not always readily available, this report includes an eGFR for both -Americans and non- Americans. The National Kidney Disease Education Program (NKDEP) does not endorse the use of the MDRD equation for patients that are not between the ages of 18 and 70, are , have extremes of body size, muscle mass, or nutritional status, or are non- or non-. According to the National Kidney Foundation, irrespective of diagnosis, the stage of the disease is based on the level of kidney function: Stage Description GFR(mL/min/1.73 m(2)) 1 Kidney damage with normal or decreased GFR 90 2 Kidney damage with mild decrease in GFR 60-89 3 Moderate decrease in GFR 30-59 4 Severe decrease in GFR 15-29 5 Kidney failure <15 (or dialysis) 49 -- REFERENCE VALUE -- Cutoff: 500 50 -- REFERENCE VALUE -- Cutoff: 200 51 -- REFERENCE VALUE -- Cutoff: 200 52 -- REFERENCE VALUE -- Cutoff: 300 53 -- REFERENCE VALUE -- Cutoff: 300 54 -- REFERENCE VALUE -- Cutoff: 300 55 -- REFERENCE VALUE -- Cutoff: 300 56 *Drug confirmation ordered by reflex. Refer to confirmation result to follow for the definitive result. This report is intended for use in clinical monitoring or management of patients. It is not intended for use in employment-related testing. Test Performed by: [facility] Dpt of Lab Med and Pathology [address] [place] [address] Chemical Unit Operator: Akil Medina III, M.D. 57 This report is intended for use in clinical monitoring and management of patients. It is not intended for use in employment-related drug testing. Test Performed by: [facility] Dpt of Lab Med and Pathology [address] [place] [address] Chemical Unit Operator: Akil Medina III, M.D. Procedures Date CPT Code Description Status 12/04/2017 52562 Myocardial Perfusion Imaging Tomographic (Spect) Completed Multiple Studies 10/16/2017 46282 EKG Tracing & Interpretation Completed 10/04/2017 01956 Treadmill Interp/Report Only Completed 10/04/2017 28389 Stress Test Supervsn W/Out I/R Completed 10/04/2017 68205 EKG, Interpretation Only Completed 10/31/2015 08445 Injection Single Tendon Origin/Insertion Completed 08/25/2013 13139 Inhalation [place] For Acute Airway Obstruction Completed W/Nebulizer/Inhaler 11/09/2011 Colonoscopy Completed Encounters Type Date Location Provider CPT E/M Dx Office Visit 10/16/2017 [facility] Valentín Buckner, 54353 I25.119 1:00p [facility] FACC Z72.0 I10 E78.5 Office Visit 10/04/2017 10:13a [facility],lexus Castillo, 14750 R07.9 Hospitalists Kateryna I10 E78.5 Z72.0 Office Visit 10/04/2017 12:11p [facility] Pedro Liu, 22420 I20.8 Dental Tech At [facility] [place], FACC, FSCAI R94.39 F17.210 R07.9 Office Visit 10/03/2017 10:12a [facility] Mimi Penn, 63789 R07.9 Assoc,pc [employer] Hospitalists I10 E78.5 Z72.0 Office Visit 03/06/2017 2:00p [facility] Marquis Lu, 65245 R22.32 [facility] Office Visit 02/15/2017 1:45p [facility], 09451 R22.32 [facility] Office Visit 01/19/2016 10:40a [facility] John Choe, 11572 M96.1 Of Gail Avendaño M47.816 Office Visit 11/01/2015 10:20a [facility] John Choe, 72763 M96.1 Of Gail Avendaño M47.816 Office Visit 08/24/2015 1:30p [facility] Key Chadwick M.D. 34885 M77.02 C.M.A. Office Visit 07/15/2015 10:00a [facility] Chadwick M.D. 43615 M77.02 C.M.A. M77.12 Office Visit 07/08/2015 1:20p [facility] Choe, 65458 722.83 Of Gail Avendaño 721.3 Office Visit 01/11/2015 10:20a [facility] John Choe, 26207 722.83 Of Gail Avendaño 721.3 724.8 Office Visit 10/12/2014 10:00a [facility] John Choe, 14337 721.1 Of Gail Avendaño Office Visit 07/20/2014 3:00p [facility] John Choe 29834 722.83 Of Gail Avendaño 721.3 Office Visit 01/18/2014 3:20p [facility] John Choe, 91503 722.83 Of Gail Avendaño 756.11 721.3 Office Visit 08/25/2013 10:20a [facility] Internal Medicine - Bekah Willis, 49686 466.0 Mesfin Avendaño Office Visit 11/17/2012 10:40a [facility] Internal Medicine - [place] [facility], 98203 722.93 [place] M.D. Office Visit 09/30/2012 11:20a [facility] Internal [facility], 91652 722.93 [place] M.D. Office Visit 09/23/2012 11:20a [facility] Internal [facility], 88240 466.0 [place] M.D. Office Visit 09/17/2012 3:20p [facility] John Choe, 73474 344.60 Of Dental Tech Ulises.DShelli 722.93 Office Visit 07/30/2012 9:20a [facility] Internal [facility], 68260 344.60 Medicine - [place] M.DShelli 722.93 564.00 Office Visit 02/25/2012 1:40p [facility] Internal [facility], 07496 722.93 Medicine - [place] M.DShelli Office Visit 02/06/2012 1:40p [facility] Internal [facility], 33781 796.2 Medicine - [place] M.DShelli 722.91 722.91 Office Visit 01/16/2012 2:20p [facility] Internal [facility], 60780 722.91 Medicine - [place] M.DShelli 719.41 357.4 Office Visit 12/25/2011 11:00a [facility] Internal [facility], 72372 722.93 Medicine - [place] M.D. Office Visit 11/07/2011 10:40a [facility] Internal [facility], 46474 722.93 Medicine - [place] M.D. Office Visit 09/25/2011 11:20a DO Not Use Dental Tech At [facility], 33680 272.4 Nasima M.DShelli 305.1 726.0 608.89 V70.0 Office Visit 09/12/2011 10:00a DO Not Use Dental Tech At [facility], 23766 V04.81 Nasima M.DShelli 722.93 v04.81 v03.82 Office Visit 09/05/2011 10:40a DO Not Use Dental Tech At [facility], 93828 807.06 Nasima M.DShelli 722.91 305.1 V72.62 338.4 726.0 V12.72 Office Visit 04/10/2011 2:20p [facility] John Choe, 52110 721.3 Of [facility] M.DShelli Office Visit 01/09/2011 1:00p [facility] John Choe, 21930 721.3 Of [facility] Ulises.Lindsay 721.3 756.11 756.11 722.83 722.83 Plan of Care Future Appointment(s):12/12/2017 2:40 pm - Valentín Buckner, DO FACC at [facility]12/06/2017 9:30 am - Matilde Key M.D., FACC, [facility] at [facility] At [facility]12/05/2017 - Valentín Buckner, DO FACCI25.119 Athscl heart disease of [place] cor art w unsp ang pctrsNew Orders:Cardiac CatheterizationComments:Stop on the way home and have lab work.Follow up:Please arrange cardiac catheterization tomorrow with Dr. Key. If this cannot be arranged for tomorrow, I need notified Follow up with me one weekZ72.0 Tobacco useI10 Essential (primary) ywedsxpfamxfD12.5 Hyperlipidemia, unspecified
[2017-12-27 17:42] LABS: ABS Basophils 0.1 10^3/ul (0-0.2); ABS Eosinophils 0.2 10^3/ul (0-0.6); ABS Lymphocytes 1.7 10^3/ul (1.0-4.8); ABS Monocytes 0.7 10^3/ul (0-0.8); ABS Neutrophils 5.2 10^3/ul (1.5-7.7); ABS Nucleated RBC 0 10^3/ul; Eosinophil % 2.5 % (0-6); Hematocrit 34 % (42-52); Hemoglobin 11.6 g/dl (14.0-18.0); Lymphocyte % 21.9 % (25-47); Mean Corpuscular HGB Conc 34 g/dl (31-36); Mean Corpuscular Hemoglobin 29 pg (27-31); Mean Corpuscular Volume 84 fL (80-94); Mean Platelet Volume 6 um3 (7.4-10.4); Nucleated Red Blood Cells % 0.1; Platelet Count 717 10^3/ul (150-450); Red Blood Count 4.06 10^6/ul (4.0-5.4); Red Cell Distribution Width 14 % (10.5-15)
[2017-12-27 17:57] LABS: INR 1.12 (0.77-1.02)
[2017-12-27 18:05] LABS: EGFR Non-African American 91.4 (>60)
[2017-12-27] MEDS ORDERED: Iohexol 350* (CONTRAST) 500 ML MDV IV ONE (18:14)
[2017-12-27] MEDS ORDERED: Nitroglycerin TAB 0.4 MG* 0.4 MG TAB SL ONE (18:19)
[2017-12-27] MEDS ORDERED: Ondansetron INJ* 2 MG/ML VIAL IV ONE (19:18)
[2017-12-27] MEDS ORDERED: Morphine INJ* 4 MG/ML 1 ML SYRINGE (NEW SYRINGE VERSION) IV ONE ×2 (19:18→21:20)
--- NOTE | 2017-12-27 20:24 | RAD ---
Indication: Chest pain, shortness of breath. Contrast: Administered 79.2 ml of OMNIPAQUE 350 mg/ml CTA of the chest was performed after IV contrast administration. The pulmonary arterial tree is well opacified. There are no filling defects present to suggest pulmonary embolus. There is no mediastinal or hilar adenopathy noted. Abnormal soft tissue is noted in the anterior mediastinum with infiltration of fat likely due to recent transsternal thoracotomy. The heart demonstrates no pericardial effusion. The aorta demonstrates no evidence of aortic dissection or aneurysmal dilatation. The lung dumont demonstrate no evidence of alveolar consolidation. No pleural fluid is identified. The axilla demonstrates no evidence of abnormal adenopathy. Upper thoracic spine fusion. IMPRESSION: No definite pulmonary embolus is noted. Patient status post transsternal thoracotomy with infiltration of fat in the anterior mediastinum likely due to postoperative change. No aortic dissection is noted.
[2017-12-27 20:45] LABS: Urine Appearance Clear; Urine Blood Negative (Negative); Urine Color Yellow; Urine Ketones Negative (Negative); Urine Protein Negative (Negative); Urine Urobilinogen Negative (Negative)
--- NOTE | 2017-12-27 20:49 | ED ---
José Luis Arce Tecjoon, scribed for Geoffrey Camara MD on 12/27/17 at 2040 . Progress - Progress Note Progress Note: CT Chest reveals, per radiologist, IMPRESSION: No definite pulmonary embolus is noted. Patient status post transsternal thoracotomy with infiltration of fat in the anterior mediastinum likely due to postoperative change. No aortic dissection is noted. ED physician has reviewed this radiology report. Course/Dx - Course Course Of Treatment: Patient has been signed out from Dr. Fong at end of shift , pending CT Chest. Patient's CT is negative, ED physician has reviewed this report. Patient will be admitted to Dr. Stiles (Hospitalist) and will be diagnosed with chest pain. Patient is agreeable to this plan. - Diagnoses Provider Diagnoses: Chest pain - Provider Notifications Discussed Care Of Patient With: Saulo Grady - Hospitalist Time Discussed With Above Provider: 20:45 - We discussed patient care with Dr. Grady (Hospitalist), who agreed to admit the patient. Instructed by Provider To: Admit As Inpatient The documentation as recorded by the José Luis patel Tecjoon accurately reflects the service I personally performed and the decisions made by Hoa hdz Abdul, MD.
[2017-12-27] MEDS ORDERED: Nicotine Inhaler* 10 MG AMP ONE (22:41)
[2017-12-27] MEDS ORDERED: Nicotine Inhaler* 10 MG AMP INH ONE (22:42)
[2017-12-27] MEDS ORDERED: Mouth Piece, Nicotine* 1 EACH CARTRIDGE INH PRN (22:42)
[2017-12-27] MEDS ORDERED: Ondansetron INJ* 2 MG/ML VIAL IV PRN (23:39)
[2017-12-27] MEDS ORDERED: Albuterol 2.5 MG/3 ML NEB.SOL* (0.083%) INH PRN (23:39)
[2017-12-27] MEDS ORDERED: Acetaminophen TAB* 325 MG PO PRN (23:39)
[2017-12-27] MEDS ORDERED: CMCS:Melatonin (NF) 3 MG TAB PO PRN (23:39)
--- NOTE | 2017-12-27 23:41 | HP ---
H&P (Free Text) History and Physical: PCP: Ron Blood MD Date/Time: 12/27/2017 1477 CC: chest pain HPI: Mr Beard is a 52YO male HX CAD/CABG 10/2017 who presents at the recommendation of Marquis Buckner MD cardiology who saw him in the office, performed an ECHO which was reportedly unrevealing, and advised he come to [facility] for further evaluation and admission. He reports the pain is sharp, R para-sternal, worse with deep inspiration and has been present since his CABG. His oxycodone was weaned yesterday from 10mg Q6H to 5mg Q12H. He reports some SOB and sweats, but denies F/C, N/V, cough, congestion, diarrhea, abdominal pain, palpitations, or other issues. CTA of the chest was negative. PMedHx CAD/CABG 10/2017 COPD anxiety HTN HLD GERD Ambulatory Orders Omeprazole CAP* [Prilosec CAP* 20 MG] 20 mg PO DAILY 08/19/15 Acetaminophen 1,000 mg PO Q8H PRN 10/03/17 Albuterol Sulfate 3 ml INH DAILY PRN 10/03/17 Ergocalciferol CAP* [Drisdol CAP*] 50,000 units PO Q14D 10/03/17 Vitamin B Complex CAP* [B Complex CAP*] 1 tab PO DAILY 10/03/17 diPHENhydraMINE PO* [Benadryl PO 25 MG TAB*] 25 - 50 mg PO BEDTIME PRN 10/03/17 hydrOXYzine HCL TAB* [Atarax TAB 50 MG *] 50 mg PO BEDTIME PRN 10/03/17 Aspirin EC Low Dose* [Ecotrin EC Low Dose 81 MG*] 81 mg PO DAILY #30 tab.ec Nicotine Inhaler* 10 mg INH Q2H PRN #60 amp 10/04/17 Cholecalciferol TAB* [Vitamin D TAB*] 2,000 units PO DAILY 12/06/17 Albuterol HFA INHALER* [Ventolin HFA Inhaler*] 2 puff INH Q6HR 12/27/17 Atorvastatin* [Lipitor*] 80 mg PO BEDTIME 12/27/17 Fluticasone NASAL SPRAY 50MCG* [Flonase NASAL SPRAY 50MCG*] 2 spray BOTH NARES BID 12/27/17 Lisinopril [Lisinopril 2.5 MG-] 2.5 mg PO DAILY 12/27/17 Metoprolol Tartrate TAB* [Lopressor TAB*] 12.5 mg PO BID 12/27/17 Oxycodone TAB(NF) [Oxycodone HCl 10 MG] 10 mg PO Q4HR PRN 12/27/17 Umeclidin/Vilant 62.5 MDI(NF) [ANORO 62.5/25 Ellipta DEVICE (NF)] 1 puff INH DAILY 12/27/17 traMADol TAB* [Ultram*] 50 mg PO Q6HR PRN 12/27/17 Allergies No Known Allergies Allergy (Verified 03/04/15 09:41) PSurgHx CABG 10/2017 C-spine fusion L-spine surgery facial laceration repair SocHx: recently quit, formerly 3/4PPD smoker w/ >35PYHX, occasional alcohol, occasional marijuana, denies other recreational drugs; full code status FamHx: Mother: alive in her 70s with CAD; Father: passed in his 60s 2nd colon CA ROS: as above, otherwise reviewed and all were negative vitals: Vital Signs Temp 36.2 C 12/27/17 16:41 Pulse 80 12/27/17 22:30 Resp 16 12/27/17 21:43 BP 82/66 12/27/17 22:30 Pulse Ox 96 12/27/17 22:30 Intake & Output 12/26/17 12/27/17 12/27/17 23:59 11:59 23:59 Weight 95.254 kg Constitutional: NAD, normally developed, overweight white male HEENM: atraumatic; sclera/conjunctiva: anicteric/clear; hearing: clinically intact; oropharynx: clear, mucosa moist Neck: soft tissue: non-tender; thyroid: normal Pulmonary: clear to auscultation bilaterally, fair to good aeration, no accessory muscle use CV: RR/RR, normal S1S2, no carotid bruit, no jugular venous distention, 2+ B DP/ PT, no edema Abdominal: soft, non-distended, non-tender, no rebound/guarding/rigidity, normoactive bowel sounds, no hepatosplenomegaly or masses, no costovertebral angle tenderness Musculoskeletal: general: grossly intact, no tenderness to palpation, negative Steven's B Integumental: healing sternotomy w/o erythema, warmth, flocculence, drainage, or warmth Psychiatric orientation: AA&O to PPS affect: calm mood: cooperative eye contact: fair content: reliable responses: timely insight: good Testing: Lab Results 12/27/17 12/27/17 12/27/17 Range/Units 17:32 17:32 17:32 WBC (3.5-10.8) 10^3/ul RBC (4.0-5.4) 10^6/ul Hgb (14.0-18.0) g/dl Hct (42-52) % MCV (80-94) fL MCH (27-31) pg MCHC (31-36) g/dl RDW (10.5-15) % Plt Count (150-450) 10^3/ul MPV (7.4-10.4) um3 Neut % (Auto) (38-83) % Lymph % (Auto) (25-47) % [place] % (Auto) (0-7) % Eos % (Auto) (0-6) % Baso % (Auto) (0-2) % Absolute Neuts (auto) (1.5-7.7) 10^3/ul Absolute Lymphs (auto) (1.0-4.8) 10^3/ul Absolute Monos (auto) (0-0.8) 10^3/ul Absolute Eos (auto) (0-0.6) 10^3/ul Absolute Basos (auto) (0-0.2) 10^3/ul Absolute Nucleated RBC 10^3/ul Nucleated RBC % INR (Anticoag Therapy) 1.12 H (0.77-1.02) APTT 32.4 (26.0-36.3) seconds Sodium 133 (133-145) mmol/L Potassium 3.7 (3.5-5.0) mmol/L Chloride 100 L (101-111) mmol/L Carbon Dioxide 24 (22-32) mmol/L Anion Gap 9 (2-11) mmol/L BUN 13 (6-24) mg/dL Creatinine 0.87 (0.67-1.17) mg/dL Est GFR ( Amer) 117.6 (>60) Est GFR (Non-Af Amer) 91.4 (>60) BUN/Creatinine Ratio 14.9 (8-20) Glucose 94 (70-100) mg/dL Lactic Acid (0.5-2.0) mmol/L Calcium 9.7 (8.6-10.3) mg/dL Magnesium 2.0 (1.9-2.7) mg/dL Total Bilirubin 0.40 (0.2-1.0) mg/dL AST 23 (13-39) U/L ALT 30 (7-52) U/L Alkaline Phosphatase 75 (34-104) U/L Total Creatine Kinase 66 (10-223) U/L CK-MB (CK-2) 1.1 (0.6-6.3) ng/mL Troponin I 0.04 H* (<0.04) ng/mL B-Natriuretic Peptide 75 ( - 100) pg/mL Total Protein 7.4 (6.4-8.9) g/dL Albumin 4.1 (3.2-5.2) g/dL Globulin 3.3 (2-4) g/dL Albumin/Globulin Ratio 1.2 (1-3) TSH 1.36 (0.34-5.60) mcIU/mL Urine Color Urine Appearance Urine pH (5-9) Ur Specific [place] (1.010-1.030) Urine Protein (Negative) Urine Ketones (Negative) Urine Blood (Negative) Urine Nitrate (Negative) Urine Bilirubin (Negative) Urine Urobilinogen (Negative) Ur Leukocyte Esterase (Negative) Urine Glucose (Negative) 12/27/17 12/27/17 12/27/17 Range/Units 17:32 17:32 20:10 WBC 8.0 (3.5-10.8) 10^3/ul RBC 4.06 (4.0-5.4) 10^6/ul Hgb 11.6 L (14.0-18.0) g/dl Hct 34 L (42-52) % MCV 84 (80-94) fL MCH 29 (27-31) pg MCHC 34 (31-36) g/dl RDW 14 (10.5-15) % Plt Count 717 H D (150-450) 10^3/ul MPV 6 L (7.4-10.4) um3 Neut % (Auto) 65.2 (38-83) % Lymph % (Auto) 21.9 L (25-47) % [place] % (Auto) 8.9 H (0-7) % Eos % (Auto) 2.5 (0-6) % Baso % (Auto) 1.5 (0-2) % Absolute Neuts (auto) 5.2 (1.5-7.7) 10^3/ul Absolute Lymphs (auto) 1.7 (1.0-4.8) 10^3/ul Absolute Monos (auto) 0.7 (0-0.8) 10^3/ul Absolute Eos (auto) 0.2 (0-0.6) 10^3/ul Absolute Basos (auto) 0.1 (0-0.2) 10^3/ul Absolute Nucleated RBC 0 10^3/ul Nucleated RBC % 0.1 INR (Anticoag Therapy) (0.77-1.02) APTT (26.0-36.3) seconds Sodium (133-145) mmol/L Potassium (3.5-5.0) mmol/L Chloride (101-111) mmol/L Carbon Dioxide (22-32) mmol/L Anion Gap (2-11) mmol/L BUN (6-24) mg/dL Creatinine (0.67-1.17) mg/dL Est GFR ( Amer) (>60) Est GFR (Non-Af Amer) (>60) BUN/Creatinine Ratio (8-20) Glucose (70-100) mg/dL Lactic Acid 2.0 (0.5-2.0) mmol/L Calcium (8.6-10.3) mg/dL Magnesium (1.9-2.7) mg/dL Total Bilirubin (0.2-1.0) mg/dL AST (13-39) U/L ALT (7-52) U/L Alkaline Phosphatase (34-104) U/L Total Creatine Kinase (10-223) U/L CK-MB (CK-2) (0.6-6.3) ng/mL Troponin I 0.04 H* (<0.04) ng/mL B-Natriuretic Peptide ( - 100) pg/mL Total Protein (6.4-8.9) g/dL Albumin (3.2-5.2) g/dL Globulin (2-4) g/dL Albumin/Globulin Ratio (1-3) TSH (0.34-5.60) mcIU/mL Urine Color Urine Appearance Urine pH (5-9) Ur Specific [place] (1.010-1.030) Urine Protein (Negative) Urine Ketones (Negative) Urine Blood (Negative) Urine Nitrate (Negative) Urine Bilirubin (Negative) Urine Urobilinogen (Negative) Ur Leukocyte Esterase (Negative) Urine Glucose (Negative) 12/27/17 Range/Units 20:30 WBC (3.5-10.8) 10^3/ul RBC (4.0-5.4) 10^6/ul Hgb (14.0-18.0) g/dl Hct (42-52) % MCV (80-94) fL MCH (27-31) pg MCHC (31-36) g/dl RDW (10.5-15) % Plt Count (150-450) 10^3/ul MPV (7.4-10.4) um3 Neut % (Auto) (38-83) % Lymph % (Auto) (25-47) % [place] % (Auto) (0-7) % Eos % (Auto) (0-6) % Baso % (Auto) (0-2) % Absolute Neuts (auto) (1.5-7.7) 10^3/ul Absolute Lymphs (auto) (1.0-4.8) 10^3/ul Absolute Monos (auto) (0-0.8) 10^3/ul Absolute Eos (auto) (0-0.6) 10^3/ul Absolute Basos (auto) (0-0.2) 10^3/ul Absolute Nucleated RBC 10^3/ul Nucleated RBC % INR (Anticoag Therapy) (0.77-1.02) APTT (26.0-36.3) seconds Sodium (133-145) mmol/L Potassium (3.5-5.0) mmol/L Chloride (101-111) mmol/L Carbon Dioxide (22-32) mmol/L Anion Gap (2-11) mmol/L BUN (6-24) mg/dL Creatinine (0.67-1.17) mg/dL Est GFR ( Amer) (>60) Est GFR (Non-Af Amer) (>60) BUN/Creatinine Ratio (8-20) Glucose (70-100) mg/dL Lactic Acid (0.5-2.0) mmol/L Calcium (8.6-10.3) mg/dL Magnesium (1.9-2.7) mg/dL Total Bilirubin (0.2-1.0) mg/dL AST (13-39) U/L ALT (7-52) U/L Alkaline Phosphatase (34-104) U/L Total Creatine Kinase (10-223) U/L CK-MB (CK-2) (0.6-6.3) ng/mL Troponin I (<0.04) ng/mL B-Natriuretic Peptide ( - 100) pg/mL Total Protein (6.4-8.9) g/dL Albumin (3.2-5.2) g/dL Globulin (2-4) g/dL Albumin/Globulin Ratio (1-3) TSH (0.34-5.60) mcIU/mL Urine Color Yellow Urine Appearance Clear Urine pH 6.0 (5-9) Ur Specific [place] 1.060 H (1.010-1.030) Urine Protein Negative (Negative) Urine Ketones Negative (Negative) Urine Blood Negative (Negative) Urine Nitrate Negative (Negative) Urine Bilirubin Negative (Negative) Urine Urobilinogen Negative (Negative) Ur Leukocyte Esterase Negative (Negative) Urine Glucose Negative (Negative) ECG, personally reviewed: NSR rate 81, ? J-point elevation V1-3 new from previous but 1st ECG post-CABG CTA chest, personally reviewed: IMPRESSION: No definite pulmonary embolus is noted. Patient status post transsternal thoracotomy with infiltration of fat in the anterior mediastinum likely due to postoperative change. No aortic dissection is noted. Impression: 52M presenting ~6wks post-CABG with atypical chest pain, ECG changes likely 2nd to CABG, flat troponins, & reportedly negative ECHO done at cardiology office DIAGNOSIS & PLAN Primary chest pain r/o ACS, suspect post-op pain issues : telemetry : trend troponin : pain control : continue aspirin, lisinopril, & metoprolol : supplemental oxygen : Marquis Buckner MD cardiology sent to ED, consulted : supportive care Secondary COPD : continue current regimen HTN : continue lisinopril & metoprolol HLD : continue atorvastatin GERD : continue omeprazole Admission Rational: observation for r/o ACS DVTp: SCDs & heparin SQ Code Status: full HCP: brother, Rhett
[2017-12-28] MEDS: HYDROmorphone INJ* 1 MG/ML CARPUJECT SYRINGE IV PRN ×7 (00:18→21:54)
[2017-12-28] MEDS: Nicotine Inhaler* 10 MG AMP INH PRN ×6 (00:20→21:25)
[2017-12-28] MEDS: NS 0.9% 1000 ML* 1,000 ML IV SCH ×2 (00:27→23:04)
[2017-12-28] MEDS: Albuterol HFA INHALER* 8 gm MDI INH SCH ×2 (01:11→06:37)
[2017-12-28 01:40] LABS: ABS Basophils 0 10^3/ul (0-0.2); ABS Eosinophils 0.3 10^3/ul (0-0.6); ABS Monocytes 0.7 10^3/ul (0-0.8); ABS Neutrophils 3.4 10^3/ul (1.5-7.7); ABS Nucleated RBC 0 10^3/ul; Eosinophil % 4.1 % (0-6); Hematocrit 32 % (42-52); Hemoglobin 10.9 g/dl (14.0-18.0); Lymphocyte % 40.4 % (25-47); Mean Corpuscular HGB Conc 34 g/dl (31-36); Mean Corpuscular Hemoglobin 29 pg (27-31); Mean Corpuscular Volume 84 fL (80-94); Mean Platelet Volume 6 um3 (7.4-10.4); Nucleated Red Blood Cells % 0.1; Platelet Count 661 10^3/ul (150-450); Red Blood Count 3.82 10^6/ul (4.0-5.4); Red Cell Distribution Width 14 % (10.5-15); White Blood Count 7.4 10^3/ul (3.5-10.8)
[2017-12-28 01:47] LABS: EGFR Non-African American 106.9 (>60)
[2017-12-28 01:49] LABS: INR 1.06 (0.77-1.02)
[2017-12-28] MEDS: oxyCODONE TAB* 5 MG TAB PO PRN ×2 (03:02→10:50)
[2017-12-28] MEDS ORDERED: Omeprazole CAP* 20 MG PO SCH ×2 (06:00→07:30)
[2017-12-28] MEDS: Heparin VIAL(*) 5000 UNITS/ML VIAL (FIVE THOUSAND) SUBCUT SCH ×3 (06:38→21:14)
[2017-12-28] MEDS ORDERED: Albuterol HFA INHALER* 8 gm MDI INH PRN (07:17)
[2017-12-28] MEDS: traMADol TAB* 50 MG PO PRN (07:21)
[2017-12-28] MEDS: Aspirin EC Low Dose* 81 MG TAB.EC PO SCH (07:22)
[2017-12-28] MEDS: Metoprolol Tartrate TAB* 25 MG PO SCH ×2 (07:22→21:22)
[2017-12-28] MEDS: Lisinopril TAB* 5 MG PO SCH (07:23)
[2017-12-28] MEDS: Docusate CAP* 100 MG PO SCH ×2 (07:24→21:13)
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
[2017-12-28] MEDS: Umeclidin/Vilant 62.5 MDI 62.5/25 mcg 14 INH ELLIPTA DEVICE INH SCH (09:21)
[2017-12-28] MEDS: Ibuprofen TAB* 800 MG PO SCH ×2 (12:34→21:12)
--- NOTE | 2017-12-28 15:58 | PN ---
Subjective Date of Service: 12/28/17 Interval History: Patient initially complains of 10/10 pain in chest and back without radiation, worse with breathing, better when leaning forward during exam. Patient states that it feels like when he previously broke his ribs. Patient states that the dilaudid helps but that it wears off between doses and the breakthrough pain medications do not work well. Patient complains of moderate SOB and diaphoresis. Patient states these wax and wane with the pain. Patient denies F/C , N/V, abdominal pain, diarrhea, Dysuria, or other pain. Patient reexamined in the afternoon after being treated with colchicine, Ibuprofen and Dilaudid and states that he has adequate relief of his pain and is able to sleep. Family History: Unchanged from Admission Social History: Unchanged from Admission Past Medical History: Unchanged from Admission Objective Active Medications: Acetaminophen (Tylenol Tab*) 650 mg PO Q6H PRN PRN Reason: FEVER/PAIN Last Admin: 12/28/17 07:21 Dose: 650 mg Albuterol (Ventolin 2.5 Mg/3 Ml Neb.Shonna*) 2.5 mg INH Q2H PRN PRN Reason: SOB/WHEEZING Albuterol (Ventolin Hfa Inhaler*) 2 puff INH Q6HR PRN PRN Reason: SOB/WHEEZING Aspirin (Aspirin Ec Low Dose*) 81 mg PO DAILY FOR[facility]LY [facility], [facility] Last Admin: 12/28/17 07:22 Dose: 81 mg Atorvastatin Calcium (Lipitor*) 80 mg PO BEDTIME KARI Colchicine (Colcrys*) 0.6 mg PO BID FOR[facility]LY [facility], [facility]1983 Device (Nicotine Mouth Piece*) 1 each INH .USE WITH NICOTROL PRN PRN Reason: CRAVING Docusate Sodium (Colace Cap*) 200 mg PO BID FOR[facility]LY [facility], [facility] Last Admin: 12/28/17 07:24 Dose: 200 mg Heparin Sodium (Porcine) (Heparin Vial(*)) 5,000 units SUBCUT Q8HR FOR[facility], [facility] Last Admin: 12/28/17 06:38 Dose: 5,000 units Hydromorphone HCl (Dilaudid Injic*) 0.5 mg IV Q3H PRN PRN Reason: PAIN Last Admin: 12/28/17 12:33 Dose: 0.5 mg Sodium Chloride (Ns 0.9% 1000 Ml*) 1,000 mls @ 50 mls/hr IV PER RATE FORMERLY [facility], [facility]1983 Last Admin: 12/28/17 00:27 Dose: 50 mls/hr Ibuprofen (Motrin Tab*) 800 mg PO Q8H [facility], [facility] Last Admin: 12/28/17 12:34 Dose: 800 mg Lisinopril (Prinivil Tab*) 2.5 mg PO DAILY [facility], [facility] Last Admin: 12/28/17 07:23 Dose: 2.5 mg Melatonin (Melatonin (Nf)) 3 mg PO BEDTIME PRN; Protocol PRN Reason: Sleep Metoprolol Tartrate (Lopressor Tab*) 12.5 mg PO BID [facility], [facility] Last Admin: 12/28/17 07:22 Dose: 12.5 mg Nicotine (Nicotine Inhaler*) 10 mg INH Q2H PRN PRN Reason: CRAVING Last Admin: 12/28/17 12:39 Dose: 10 mg Omeprazole (Prilosec Cap*) 20 mg PO DAILY@0730 FOR[facility], [facility] Last Admin: 12/28/17 06:39 Dose: 20 mg Ondansetron HCl (Zofran Inj*) 4 mg IV Q6H PRN PRN Reason: NAUSEA Oxycodone HCl (Roxycodone Tab*) 5 mg PO Q4H PRN PRN Reason: PAIN Last Admin: 12/28/17 10:50 Dose: 5 mg Tramadol HCl (Ultram*) 50 mg PO Q6H PRN PRN Reason: PAIN Last Admin: 12/28/17 07:21 Dose: 50 mg Umeclidinium/Vilanterol (Anoro 62.5/25 Ellipta Device (Nf)) 1 inh INH DAILY [facility], [facility] Last Admin: 12/28/17 09:21 Dose: Not Given Vital Signs - 8 hr 12/28/17 12/28/17 12/28/17 08:00 08:25 09:21 Temperature Pulse Rate 76 Respiratory 18 18 18 Rate Blood Pressure (mmHg) O2 Sat by Pulse 98 98 Oximetry 12/28/17 12/28/17 12/28/17 10:50 10:55 11:18 Temperature Pulse Rate Respiratory 20 20 20 Rate Blood Pressure (mmHg) O2 Sat by Pulse Oximetry 12/28/17 12/28/17 12/28/17 12:19 12:33 12:34 Temperature 97.5 F Pulse Rate 68 Respiratory 20 20 20 Rate Blood Pressure 111/66 (mmHg) O2 Sat by Pulse 96 Oximetry 12/28/17 12/28/17 13:05 15:19 Temperature Pulse Rate Respiratory 20 16 Rate Blood Pressure (mmHg) O2 Sat by Pulse Oximetry Oxygen Devices in Use Now: None Appearance: Patient is a 52yo male who appears older than stated age and is sitting in the bed in [facility]. Eyes: No Scleral Icterus, PERRLA Ears/Nose/Mouth/Throat: NL Teeth, Lips, Gums, Clear Oropharnyx, Mucous Membranes Moist Neck: NL Appearance and Movements; NL JVP, Trachea Midline Respiratory: Symmetrical Chest Expansion and Respiratory Effort, - - Expiratory wheezes with prolonged expiratory phase. Cardiovascular: NL Sounds; No Murmurs; No JVD, RRR, No Edema, - - Pulses 2+ Abdominal: NL Sounds; No Tenderness; No Distention, No Hepatosplenomegaly Lymphatic: No Cervical Adenopathy Extremities: No Edema, No Clubbing, Cyanosis Skin: No Nodules or Sclerosis, - - Large fresh thoracotomy scar on sternum. Neurological: Alert and Oriented x 3, NL Sensation, NL Muscle Strength and Tone , - - CN II-XII intact. Result Diagrams: 12/28/17 01:32 12/28/17 01:15 Microbiology and Other Data: Microbiology 12/28/17 03:15 Nasal Screen MRSA (PCR)(PARAG) - Final Nasal Mrsa Not Detected Assess/Plan/Problems-Billing Assessment: Patient is a 52yo male with a PMH of CAD S/P recent CABG, COPD, HTN, HLD who presents with severe CP consistent with post-pericardiotomy syndrome which improved with Colchicine and Ibuprofen in addition to his pain medications. - Patient Problems (1) S/P CABG (coronary artery bypass graft) Current Visit: Yes Status: Acute Code(s): Z95.1 - PRESENCE OF AORTOCORONARY BYPASS GRAFT SNOMED Code(s): 844720294 Comment: Appreciate Cardiology input. Patient was discharged from [facility] last saturday after a CABG for multi-vessel CAD. Patient has had Increasing stabbing pleuritic pain since then. No prophylaxis for post-pericardiotomy syndrome with colchicine. Started now at .6mg PO BID and Ibuprofen 800mg PO Q8H. Greatly improved pain. Still requiring IV pain medication at this time. (2) CAD (coronary artery disease) Current Visit: Yes Status: Acute Code(s): I25.10 - ATHSCL HEART DISEASE OF [place] CORONARY ARTERY W/O ANG PCTRS SNOMED Code(s): 25063309 Comment: S/P CABG. Troponin slightly elevated and trended down. CTA and Echo normal. Not likely ACS. Continue ASA, Lipitor, Metoprolol, Lisinopril. (3) HTN (hypertension) Current Visit: Yes Status: Acute Code(s): I10 - ESSENTIAL (PRIMARY) HYPERTENSION SNOMED Code(s): 90159858 Comment: Normotensive. Continue Metoprolol, Lisinopril. (4) HLD (hyperlipidemia) Current Visit: Yes Status: Acute Code(s): E78.5 - HYPERLIPIDEMIA, UNSPECIFIED SNOMED Code(s): 51898226 Comment: Continue Lipitor (5) GERD (gastroesophageal reflux disease) Current Visit: Yes Status: Acute Code(s): K21.9 - GASTRO-ESOPHAGEAL REFLUX DISEASE WITHOUT ESOPHAGITIS SNOMED Code(s): 526937893 Comment: Continue Omeprazole which will be increased while on Ibuprofen. (6) Thrombocytosis Current Visit: Yes Status: Acute Comment: Likely present as acute phase reactant. No other signs of MDS. No signs of clot or hyperviscosity syndrome. (7) DVT prophylaxis Current Visit: Yes Status: Acute Code(s): FDZ4939 - SNOMED Code(s): 848396216 Comment: Heparin SubQ (8) Full code status Current Visit: Yes Status: Acute Code(s): Z78.9 - OTHER SPECIFIED HEALTH STATUS SNOMED Code(s): 999738168 Status and Disposition: Admitted inpatient. Unable to get adequate pain control without IV medications to discharge.
[2017-12-28] MEDS ORDERED: Atorvastatin* 80 MG TAB PO SCH (21:00)
[2017-12-28] MEDS: Colchicine* 0.6 MG TAB PO SCH (21:54)
[2017-12-29] MEDS: Ibuprofen TAB* 800 MG PO SCH ×2 (03:12→12:04)
[2017-12-29] MEDS: HYDROmorphone INJ* 1 MG/ML CARPUJECT SYRINGE IV PRN (03:14)
[2017-12-29] MEDS: Heparin VIAL(*) 5000 UNITS/ML VIAL (FIVE THOUSAND) SUBCUT SCH ×2 (05:44→15:14)
[2017-12-29 06:12] LABS: Hematocrit 30 % (42-52); Hemoglobin 10.6 g/dl (14.0-18.0); Mean Corpuscular HGB Conc 35 g/dl (31-36); Mean Corpuscular Hemoglobin 29 pg (27-31); Mean Corpuscular Volume 84 fL (80-94); Mean Platelet Volume 6 um3 (7.4-10.4); Platelet Count 649 10^3/ul (150-450); Red Blood Count 3.63 10^6/ul (4.0-5.4); Red Cell Distribution Width 14 % (10.5-15); White Blood Count 6.1 10^3/ul (3.5-10.8)
[2017-12-29 06:33] LABS: EGFR Non-African American 108.5 (>60)
[2017-12-29] MEDS ORDERED: oxyCODONE TAB* 5 MG TAB PO PRN (07:01)
[2017-12-29] MEDS ORDERED: Omeprazole CAP* 20 MG PO SCH (07:30)
[2017-12-29] MEDS ORDERED: Senna TAB PO PRN (07:52)
[2017-12-29] MEDS: Aspirin EC Low Dose* 81 MG TAB.EC PO SCH (08:29)
[2017-12-29] MEDS: Colchicine* 0.6 MG TAB PO SCH (08:29)
[2017-12-29] MEDS: Metoprolol Tartrate TAB* 25 MG PO SCH (08:29)
[2017-12-29] MEDS: Umeclidin/Vilant 62.5 MDI 62.5/25 mcg 14 INH ELLIPTA DEVICE INH SCH (08:30)
[2017-12-29] MEDS: Docusate CAP* 100 MG PO SCH (08:30)
[2017-12-29] MEDS: Lisinopril TAB* 5 MG PO SCH (08:30)
[2017-12-29] MEDS: oxyCODONE TAB* 5 MG TAB PO PRN ×2 (08:31→12:35)
[2017-12-29] MEDS: Nicotine Inhaler* 10 MG AMP INH PRN (08:35)
[2017-12-29] MEDS: traMADol TAB* 50 MG PO PRN (12:04)
[2017-12-29 14:48] VITALS: BP 124/84
--- NOTE | 2017-12-30 05:27 | DS ---
CC: Dr. Shayna Blood; Dr. Valentín Buckner * DISCHARGE SUMMARY: DATE OF ADMISSION: 12/27/17 DATE OF DISCHARGE: 12/29/17 PRIMARY CARE PROVIDER: Dr. Shayna Blood. PRIMARY E COMMERCE DIRECTOR: Dr. Valentín Buckner. MY ATTENDING WHILE IN THE HOSPITAL: Dr. Jeff Garduno.* (DICTATED BY ONEL WALL) PRIMARY DISCHARGE DIAGNOSES: 1. Postpericardiotomy syndrome. 2. Chest pain. SECONDARY DISCHARGE DIAGNOSES: 1. Coronary artery disease, coronary artery bypass grafting, 12/16/17. 2. Chronic obstructive pulmonary disease. 3. Anxiety. 4. Hypertension. 5. Hyperlipidemia. 6. Gastroesophageal reflux disease. STUDIES DONE WHILE IN THE HOSPITAL: Electrocardiogram from 12/27/17 shows normal sinus rhythm, minor ST segment elevation in V2 and V3, possible FL depression in leads II, III, incomplete right bundle branch block. Normal axis. No hypertrophy enlargement. No other abnormalities. Chest thorax CTA from 12/27/17 read as no definite pulmonary embolus is noted. The patient is status post transsternal thoracotomy with infiltration of fat in the anterior mediastinum likely due to postoperative change. No area of dissection is noted. MEDICATIONS AT DISCHARGE: 1. Ergocalciferol 50,000 units p.o. every 2 weeks. 2. Tylenol 1000 mg p.o. q.8 hours. 3. Hydroxyzine 50 mg p.o. at bedtime. 4. Vitamin B 1 tab p.o. daily. 5. Albuterol sulfate 1.25 mL inhalation daily as needed. 6. Benadryl 50 mg p.o. at bedtime as needed. 7. Aspirin 81 mg p.o. daily. 8. Nicotine 10 mg p.o. q.2 hours as needed. 9. Vitamin D 2000 units p.o. daily. 10. Tramadol 50 mg p.o. q.6 hours as needed. 11. Oxycodone 10 mg p.o. q.4 hours as needed. 12. Metoprolol tartrate 12.5 mg p.o. b.i.d. 13. Lisinopril 2.5 mg p.o. daily. 14. Flonase 2 sprays both nares b.i.d. 15. Lipitor 80 mg p.o. at bedtime. 16. Anoro Ellipta 62.5/25 one puff inhalation daily. 17. Albuterol inhaler 2 puffs inhalation q.6 hours as needed. 18. Colchicine 0.6 mg p.o. b.i.d. 19. Docusate 200 mg p.o. b.i.d. 20. Ibuprofen 800 mg p.o. q.8 hours. 21. Melatonin 3 mg p.o. at bedtime. 22. Omeprazole 40 mg p.o. daily. New medications at discharge: 1. Colchicine. 2. Ibuprofen. 3. Docusate. 4. Melatonin. 5. Omeprazole. Medications discontinued at discharge: 1. Omeprazole 20 mg p.o. daily. HOSPITAL COURSE: This is a brief summary of patient's presentation. For more details, please see the history and physical from Dr. Saulo Grady on . In brief, patient is a 52-year-old male with past medical history significant for the above, who presents with chest pain. He was sent from his cardiology office where he was having a followup appointment with Dr. Valentín Buckner. Patient was discharged from [facility] on 12/20/17 after having a coronary artery bypass graft on 12/16/17. Patient was seen at this hospital on 12/07/17 for a cardiac catheterization with Dr. Rhett Key, which showed left main proximal LAD with [id number] disease and was scheduled as an outpatient for bypass, which was performed as above on the . Patient was discharged and had significant pain and was being continued on oxycodone 10 mg p.o. q.4 hours. Patient states that his pain continued and increased after the surgery with new pain that was pleuritic in nature in his chest, in his back, which was better when leaning forward. However, in spite this after calling his surgeon, his dose was decreased from 10 mg p.o. q.4 hours to 5 mg p.o. q.6 hours. 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 Patient had echocardiogram done at his pottery kiln builder's office, which showed no focal wall abnormalities or pericardial effusion. Patient was admitted to the hospital for a pain control, started on Dilaudid. Patient had a chest CT read as above showing no acute pathology except for postsurgical changes. The dose that worked to control the patient's pain of Dilaudid was 0.5 mg IV q.3 hours. Patient had moderately good pain control, this bring his pain to about 5/10. Patient deal with pleuritic nature of his pain and his recent cardiac surgery and the fact that the pain decrease when he lean forward, this seemed to likely represent postpericardiotomy syndrome. Patient was started on colchicine and ibuprofen and the doses above and had significant increased relief in his pain. Patient was able to be weaned off of Dilaudid and restarted on his previous dose of oxycodone as well as tramadol for breakthrough pain, which had previously been working for him in the postsurgical timeframe. The patient had troponin of 0.04, which was repeated 0.04 and then 0.03, 0.03. Patient had an elevated CRP while hospitalized, slight anemia and a platelet count of 717 which was decreased while he was in the hospital. The patient had no other significant laboratory abnormalities. Negative urinalysis. Patient's vital signs showed no fever, tachycardia, hypoxia. Patient had a mildly elevated blood pressure on admission that decreased to its lowest of 80/66 in the night of 12/27/17, but then remained in the normotensive range. Patient had no other complaints except for constipation. Patient was amenable to discharge on 12/29/17 stating his pain was tolerable on his previous medication regimen. PHYSICAL EXAM ON DAY OF DISCHARGE: General: The patient is a 52-year-old male who appears stated age and sitting comfortably in bed, in no acute distress. Vital signs at the time of discharge: Temperature 97.2, pulse rate 63, respiratory rate 20, oxygen saturation 98%, blood pressure 124/84. HEENT: Head : Normocephalic, atraumatic. Sclerae anicteric. No conjunctival injection. Nasal mucosa moist. Oral mucosa moist. No pharyngeal erythema, discharge, or exudate. Neck: Supple, nontender. No lymphadenopathy. No carotid bruits auscultated. No JVD. Cardiac: Regular rate and rhythm. No clicks, murmurs, gallops, or rubs. Pulses 2+ in bilateral dorsalis pedis, posterior tibialis, and radial areas. No lower extremity edema noted. No bilateral calf tenderness to palpation. Respiratory: Clear to auscultation bilaterally. No wheezes, rales, or rhonchi. Wheezes from previous exam have disappeared. Abdomen: Soft, nontender, nondistended. Bowel sounds present and normoactive in all 4 quadrants. No hepatosplenomegaly. No abdominal bruits auscultated. Genitourinary: No suprapubic or CVA tenderness. Skin: Patient has a large incision in his chest consistent with previous thoracotomy for coronary artery bypass graft, which is healing well. Patient has small scabs on his upper abdomen, which are slightly inflamed, but have no discharge or other signs of infection. Patient has no other rash. Neuro: Cranial nerves II through XII intact. No focal deficits. Alert and oriented x3. Normal gait. Psychiatric: Pleasant and cooperative. LABORATORY DATA ON DAY OF DISCHARGE: White blood count 6.1, hemoglobin 10.6, platelet count 649. Sodium 133, potassium 4.5, chloride 103, carbon dioxide 23 , anion gap 7, BUN 15, creatinine 0.75, calcium 8.9, magnesium 1.9. CRP 15.4. DISCHARGE PLAN: Patient will be discharged to home on his previous medication regimen. Patient was only given prescriptions for 1 week's worth of his medications. Patient should follow up with his pottery kiln builder, primary care provider, or surgeon for refills. The patient's I-STOP was checked and is consistent with his reports. Patient stated dissatisfaction with his primary care provider. Patient was encouraged to follow up with his primary care provider in the short term and if this was unacceptable, then to find a new primary care provider shortly for continuation of his care, so he is not need to return to the hospital. Patient was also recommended to follow up with his pottery kiln builder as soon as possible, which is consistent with patient's most recent cardiology note from the day of his admission to follow up within a week. Patient was instructed to take colchicine twice daily as prescribed and ibuprofen as above with a taper of 800 mg weekly over the course of 3 weeks. Patient had his PPI therapy increased while he is on high dose NSAID therapy. The patient should take all of his home medications as prescribed. He was previously noted to stop taking his statin. Patient should continue to take nicotine replacement therapy to aid in quitting smoking as this is very important for his continued heart health. Patient should avoid excessively strenuous activity. Patient should have a heart-healthy diet without caffeine. Patient should return to the hospital for a significant change in the character of his chest pain, significant chest pain that is no under bearable or severely increased shortness of breath not responsive to inhalers or other alarming symptoms. TIME SPENT: Approximately 60 minutes was spent on this discharge, 30 of which was spent [id number] with the patient obtaining history and physical and discussing treatment plan. ONEL WALL [id number]/CPS #: [id number]
== END 2017-12-29 15:30 | disposition home or self-care (01) | DRG 207 ==
LOC: ED 16:38 → MEDTELE 22:18 → OBSVTOIN 12-29 07:39
PROVIDERS: ADMIT Hospitalist; ATTEND Internal Medicine
DX: I97.0 Postcardiotomy syndrome (principal); I11.9 Hypertensive heart disease without heart failure; D47.3 Essential (hemorrhagic) thrombocythemia; R07.9 Chest pain, unspecified; I25.10 Atherosclerotic heart disease of native coronary artery without angina pectoris; Z95.1 Presence of aortocoronary bypass graft; J44.9 Chronic obstructive pulmonary disease, unspecified; F41.9 Anxiety disorder, unspecified; E78.5 Hyperlipidemia, unspecified; K21.9 Gastro-esophageal reflux disease without esophagitis; I45.19 Other right bundle-branch block; Z79.1 Long term (current) use of non-steroidal anti-inflammatories (NSAID); Z79.82 Long term (current) use of aspirin; Z79.891 Long term (current) use of opiate analgesic; Z79.899 Other long term (current) drug therapy; Z87.891 Personal history of nicotine dependence; Z82.49 Family history of ischemic heart disease and other diseases of the circulatory system; Z80.0 Family history of malignant neoplasm of digestive organs
CPT/HCPCS: 36415; 71275; 80048; 80053; 81003; 82550; 82553; 82565; 83605; 83735; 83880; 84443; 84484; 84520; 85025; 85027; 85610; 85730; 86140; 87641; 93005; 94760; 99285; A9270-GY; G0378; J1170; J1644; J2270; J2405; Q9967